=== PATIENT | female | born 1930 | race Caucasian/White ===

== ENCOUNTER 2018-12-02 16:10 | Observation (INO) | payer MEDICARE, OTHER ==
--- NOTE | 2018-12-02 16:22 | EDM.PDOC ---
ED HPI GENERAL MEDICAL PROBLEM - General Chief Complaint: Head Injury Stated Complaint: PT FELL AND HIT HEAD Time Seen by Provider: 12/02/18 16:13 Source of Information: Reports: Patient History Limitations: Reports: No Limitations - History of Present Illness INITIAL COMMENTS - FREE TEXT/NARRATIVE: HISTORY AND PHYSICAL: History of present illness: Patient is an 88-year-old female presents to the ED today with concern of head injury that occurred prior to arrival to the ED. Patient states she was leaving her daughter's house and walking home and has a bad left knee chronically. Patient states she went to go step off a curb and her "knee gave out" which is not unusual for her according to patient. Patient states she fell back and hit the top of her head. Patient states she did not lose consciousness and remembers the whole event. Patient states other than the top of her head hurting where she hit, she has no other symptoms or concerns. Patient states she does take a baby aspirin daily. Patient states she is up-to-date on her tetanus vaccine. Patient denies fever, chills, chest pain, shortness of breath, or cough. Denies headache, neck stiff ness, change in vision, syncope, or near syncope. Denies nausea, vomiting, abdominal pain, diarrhea, constipation, or dysuria. Has not noted any blood in urine or stool. Patient has been eating and drinking appropriately. Review of systems: As per history of present illness and below otherwise all systems reviewed and negative. Past medical history: As per history of present illness and as reviewed below otherwise noncontributory. Surgical history: As per history of present illness and as reviewed below otherwise noncontributory. Social history: See social history for further information Family history: As per history of present illness and as reviewed below otherwise noncontributory. Physical exam: General: Patient is alert, oriented, and in no acute distress. Patient lay ing comfortably on exam table. HEENT: Atraumatic, normocephalic, pupils equal and reactive bilaterally, negative for conjunctival pallor or scleral icterus, mucous membranes moist, TMs normal bilaterally, throat clear, neck supple, nontender, trachea midline. No drooling or trismus noted. No meningeal signs. No hot potato voice noted. There is a 2 cm subcutaneous laceration on the posterior scalp that does have a moderate amount of bleeding. Lungs: Clear to auscultation, breath sounds equal bilaterally, chest nontender. Heart: S1S2, regular rate and rhythm without overt murmur Abdomen: Soft, nondistended, nontender. Negative for masses or hepatosplenomegaly. Negative for costovertebral tenderness. Pelvis: Stable nontender. Genitourinary: Deferred. Rectal: Deferred. Skin: Intact, warm, dry. No lesions or rashes noted. Extremities: Atraumatic, negative for cords or calf pain. Neurovascular unremarkable. Neuro: Awake, alert, oriented. Cranial nerves II through XII unremarkable. Cerebellum unremarkable. Motor and sensory unremarkable throughout. Exam nonfocal. Notes: Trauma alert was called upon arrival to the ED. Dr. Perez directly involved in patient care. Dr. Wu, general surgery consulted on patient and will admit to observation. Voices understanding and is agreeable to plan of care. Denies any further questions or concerns at this time. Diagnostics: Head CT, cervical spine CT, chest x-ray, pelvic x-ray, CBC, CMP, UA, EKG, troponin Therapeutics: Sutures Impression: Scalp laceration with hematoma Head injury Fall Plan: 1. Admit to observation to Dr. Wu Definitive disposition and diagnosis as appropriate pending reevaluation and review of above. - Related Data Allergies Allergy/AdvReac Type Severity Reaction Status Date / Time No Known Allergies Allergy Verified 12/02/18 17:01 Home Meds: Home Meds Aspirin [[place] Aspirin EC] 81 mg PO DAILY 09/10/15 [History] Hydrochlorothiazide 12.5 mg PO DAILY 09/10/15 [History] Levothyroxine Sodium [Synthroid] 75 mcg PO DAILY 09/10/15 [History] Rosuvastatin Calcium 5 mg PO DAILY 09/10/15 [History] Sotalol HCl [Betapace] 160 mg PO BID 09/10/15 [History] Past Medical History Other HEENT History: wears glasses, has top partial Cardiovascular History: Reports: Arrhythmia, High Cholesterol, Hypertension Other Cardiovascular History: hx arrhythmia yrs ago, states went to [place] and they put the paddles on her and got it back in rhythm Respiratory History: Reports: None Gastrointestinal History: Reports: Bowel 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: Musculoskeletal History: Reports: Osteoarthritis, Osteoporosis Neurological History: Reports: None Psychiatric History: Reports: None Endocrine/Metabolic History: Reports: Hypothyroidism Hematologic History: Reports: Blood Transfusion(s) Other Hematologic History: blood transfusion for post bleed Immunologic History: Reports: None Oncologic (Cancer) History: Reports: Basal Cell Carcinoma Other Dermatologic History: actinic keratoses to nose - Past Surgical History Female Surgical History: Reports: Breast Biopsy, Tubal Ligation ED ROS GENERAL - Review of Systems Review Of Systems: ROS reveals no pertinent complaints other than HPI. ED EXAM, HEAD INJURY - Physical Exam Exam: See Below (See dictation) ED LACERATION/WOUND & KYLEE PROC - Laceration/Wound Repair Posterior Head Lac/wound length in cm: 2 Appearance: Subcutaneous, Linear Distal NVT: Neuro & Vascular Intact, No Tendon Injury Skin Prep: Chlorhexidine (Hibiciens) Saline irrigation (cc's): 50 Exploration/Debridement/Repair: Wound Explored, Explored to Base, No Foreign Material Found Closed with: Sutures Suture Size: 4-0 # of Sutures: 2 Suture Type: Other (ethalon) Drain Placement: No Sterile Dressing Applied: Nurse Tetanus Status Addressed: Yes (up to date) Complications: No Course - Vital Signs Last Recorded V/S: Last Vital Signs Temp 97.2 F 12/02/18 16:55 Pulse 71 12/02/18 16:55 Resp 14 12/02/18 16:55 BP 150/74 H 12/02/18 16:55 Pulse Ox 96 12/02/18 16:55 - Orders/Labs/Meds Orders: Active Orders 24 hr Category Date Time Status Admission Status [Patient Status] [ADT] Stat ADT 12/02/18 18:33 Active EKG Documentation Completion [RC] STAT Care 12/02/18 16:22 Active UA RFX NATE AND CULT IF INDIC [URIN] Stat Lab 12/02/18 19:28 Received Labs: Laboratory Tests 12/02/18 12/02/18 12/02/18 Range/Units 17:42 17:42 17:42 WBC 11.01 H (4.0-11.0) K/uL RBC 4.29 L (4.30-5.90) M/uL Hgb 13.1 (12.0-16.0) g/dL Hct 39.8 (36.0-46.0) % MCV 92.8 (80.0-98.0) fL MCH 30.5 (27.0-32.0) pg MCHC 32.9 (31.0-37.0) g/dL RDW Std Deviation 46.3 (28.0-62.0) fl RDW Coeff of Subha 14 (11.0-15.0) % Plt Count 262 (150-400) K/uL MPV 8.80 (7.40-12.00) fL Neut % (Auto) 78.5 (48.0-80.0) % Lymph % (Auto) 13.1 L (16.0-40.0) % [place] % (Auto) 7.1 (0.0-15.0) % Eos % (Auto) 1.2 (0.0-7.0) % Baso % (Auto) 0.1 (0.0-1.5) % Neut # (Auto) 8.7 H (1.4-5.7) K/uL Lymph # (Auto) 1.4 (0.6-2.4) K/uL [place] # (Auto) 0.8 (0.0-0.8) K/uL Eos # (Auto) 0.1 (0.0-0.7) K/uL Baso # (Auto) 0.0 (0.0-0.1) K/uL Nucleated RBC % 0.0 /100WBC Nucleated RBCs # 0 K/uL INR 1.03 Sodium 138 (136-145) mmol/L Potassium 3.6 (3.5-5.1) mmol/L Chloride 101 (98-107) mmol/L Carbon Dioxide 24.8 (21.0-32.0) mmol/L BUN 12 (7.0-18.0) mg/dL Creatinine 0.8 (0.6-1.0) mg/dL Est Cr Clr Drug Dosing 49.98 mL/min Estimated GFR (MDRD) > 60.0 ml/min Glucose 113 H (74-106) mg/dL Calcium 8.8 (8.5-10.1) mg/dL Total Bilirubin 0.7 (0.2-1.0) mg/dL AST 21 (15-37) IU/L ALT 16 (14-63) IU/L Alkaline Phosphatase 51 (46-116) U/L Troponin I < 0.050 (0.000-0.056) ng/mL Total Protein 7.0 (6.4-8.2) g/dL Albumin 3.7 (3.4-5.0) g/dL Globulin 3.3 (2.6-4.0) g/dL Albumin/Globulin Ratio 1.1 (0.9-1.6) Departure - Departure Time of Disposition: 18:40 Disposition: Refer to Observation Clinical Impression: Head injury Qualifiers: Encounter type: initial encounter Qualified Code(s): S09.90XA - Unspecified injury of head, initial encounter Scalp laceration Qualifiers: Encounter type: initial encounter Qualified Code(s): S01.01XA - Laceration without foreign body of scalp, initial encounter Scalp hematoma Qualifiers: Encounter type: initial encounter Qualified Code(s): S00.03XA - Contusion of scalp, initial encounter Fall Qualifiers: Encounter type: initial encounter Qualified Code(s): W19.XXXA - Unspecified fall, initial encounter - Discharge Information - My Orders Last 24 Hours: My Active Orders 12/02/18 16:22 EKG Documentation Completion [RC] STAT 12/02/18 18:33 Admission Status [Patient Status] [ADT] Stat 12/02/18 19:28 UA RFX NATE AND CULT IF INDIC [URIN] Stat - Assessment/Plan Last 24 Hours: My Active Orders 12/02/18 16:22 EKG Documentation Completion [RC] STAT 12/02/18 18:33 Admission Status [Patient Status] [ADT] Stat 12/02/18 19:28 UA RFX NATE AND CULT IF INDIC [URIN] Stat
--- NOTE | 2018-12-02 17:12 | CT ---
INDICATION: Fall TECHNIQUE: CT cervical spine without contrast. COMPARISON: None FINDINGS: Vertebral alignment: Alignment is normal. Vertebrae: There are no acute fractures. Mild biconcave endplate compression deformities T3 vertebral body most likely chronic. Discs and facet joints: Disc spaces and facets are within normal limits. Extraspinal findings: Prevertebral soft tissues, visualized airway, and visualized lungs are unremarkable. IMPRESSION: No evidence of acute cervical spine trauma. Mild biconcave T3 compression deformity most likely chronic. Dictated by Karthik Smith MD @ 12/02/2018 5:11:00 PM Please note that all CT scans at this facility use dose modulation, iterative reconstruction, and/or weight-based dosing when appropriate to reduce radiation dose to as low as reasonably achievable. Dictated by: Karthik Smith MD @ 12/02/2018 17:11:05 (Electronically Signed)
--- NOTE | 2018-12-02 17:19 | CT ---
INDICATION: Fall on blood thinners TECHNIQUE: CT head without contrast. COMPARISON: None FINDINGS: CSF spaces: Within normal limits for age. Brain parenchyma: The jimenez-white differentiation is normal. No sign of mass, hemorrhage, or midline shift. Periventricular white matter changes consistent with chronic microvascular disease. Mild diffuse volume loss. Skull base and calvarium: The visualized paranasal sinuses and mastoid air cells demonstrate no acute or significant findings. The visualized orbits are grossly unremarkable. No skull fractures. Large parietal occipital scalp hematoma. IMPRESSION: Large parieto-occipital scalp hematoma with no associated fractures or evidence of acute intracranial trauma. Dictated by Karthik Smith MD @ 12/02/2018 5:16:59 PM Please note that all CT scans at this facility use dose modulation, iterative reconstruction, and/or weight-based dosing when appropriate to reduce radiation dose to as low as reasonably achievable. Dictated by: Karthik Smith MD @ 12/02/2018 17:17:19 (Electronically Signed)
--- NOTE | 2018-12-02 17:32 | CR ---
INDICATION: Pt fell today, chest pain. TECHNIQUE: Chest 1 view. 12/02/18 FINDINGS: Cardiovascular and mediastinum: Heart size and vasculature are normal in caliber and appearance. Mediastinum is within normal limits. Lungs and pleural space: Lungs are clear. No sign of infiltrate or mass. No sign of pleural effusion. No pneumothorax. Bones and soft tissues: No significant findings. IMPRESSION: Unremarkable chest. Dictated by: Karthik Smith MD @ 12/02/2018 17:31:45 (Electronically Signed)
--- NOTE | 2018-12-02 17:34 | CR ---
INDICATION: Fall, pelvic pain TECHNIQUE: AP pelvis one view COMPARISON: None FINDINGS: Bones: Alignment is normal. No fractures or bone lesions. Joint spaces: Unremarkable. Soft tissues: Unremarkable. IMPRESSION: No evidence of acute trauma. Dictated by Karthik Smith MD @ 12/02/2018 5:33:50 PM Dictated by: Karthik Smith MD @ 12/02/2018 17:33:57 (Electronically Signed)
[2018-12-02 18:15] LABS: BLOOD UREA NITROGEN,BUN 12 mg/dL (7.0-18.0); CARBON DIOXIDE,CO2 24.8 mmol/L (21.0-32.0); CHLORIDE,CL 101 mmol/L (98-107); GLUCOSE RANDOM 113 mg/dL (74-106); POTASSIUM,K 3.6 mmol/L (3.5-5.1); SODIUM,NA 138 mmol/L (136-145)
--- NOTE | 2018-12-02 19:34 | PCM.HP.2 ---
H&P History of Present Illness - General Date of Service: 12/02/18 Admit Problem/Dx: Admission Diagnosis/Problem Admission Diagnosis/Problem Head injury without fracture of skull, fall at home. Source of Information: Patient History Limitations: Reports: No Limitations - History of Present Illness Initial Comments - Free Text/Narative: Patient is an 88-year-old female who fell at home in her garage. She was attempting to go up the stairs into her house and she states her knee gave out. She fell backwards striking her head on the concrete. She denies any loss of consciousness and is able to recount all of the recent events. She states her daughter did bring her to the hospital and she did not require ambulance transfer. This was called as a trauma alert secondary to her age. She did suffer a laceration to the back of her scalp that didn't require suturing by Dr. Perez. She is going to be admitted to observation status. Telemetry monitoring will be used. Onset of Symptoms: Reports: Today Location: Reports: Head Quality: Reports: Ache Severity: Mild Improves with: Reports: Rest Worsens with: Reports: None Context: Reports: Trauma. Denies: Sick Contact, Activity/Exercise, Lifting, Exertion, Rest Associated Symptoms: Denies: Confusion, Chest Pain, Headaches, Loss of Appetite , Malaise, Nausea/Vomiting, Seizure, Shortness of Breath, Syncope, Weakness - Related Data Allergies/Adverse Reactions: Allergies Allergy/AdvReac Type Severity Reaction Status Date / Time No Known Allergies Allergy Verified 12/02/18 17:01 Home Medications: Home Meds Aspirin [[place] Aspirin EC] 81 mg PO DAILY 09/10/15 [History] Hydrochlorothiazide 12.5 mg PO DAILY 09/10/15 [History] Levothyroxine Sodium [Synthroid] 75 mcg PO DAILY 09/10/15 [History] Rosuvastatin Calcium 5 mg PO DAILY 09/10/15 [History] Sotalol HCl [Betapace] 160 mg PO BID 09/10/15 [History] Past Medical History Other HEENT History: wears glasses, has top partial Cardiovascular History: Reports: Arrhythmia, High Cholesterol, Hypertension Other Cardiovascular History: hx arrhythmia yrs ago, states went to [place] and they put the paddles on her and got it back in rhythm Respiratory History: Reports: None 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: Musculoskeletal History: Reports: Osteoarthritis, Osteoporosis Neurological History: Reports: None Psychiatric History: Reports: None Endocrine/Metabolic History: Reports: Hypothyroidism Hematologic History: Reports: Blood Transfusion(s) Other Hematologic History: blood transfusion for post bleed Immunologic History: Reports: None Oncologic (Cancer) History: Reports: Basal Cell Carcinoma Other Dermatologic History: actinic keratoses to nose - Infectious Disease History Infectious Disease History: Reports: Chicken Pox, Measles, Rheumatic Fever - Past Surgical History Female Surgical History: Reports: Breast Biopsy, Tubal Ligation Social & Family History - Family History Family Medical History: Noncontributory - Tobacco Use Smoking Status *Q: Never Smoker - Caffeine Use Caffeine Use: Reports: None - Recreational Drug Use Recreational Drug Use: No H&P Review of Systems - Review of Systems: Review Of Systems: See Below General: Denies: Fever, Chills, Malaise, Weakness HEENT: Reports: No Symptoms Pulmonary: Denies: Shortness of Breath, Wheezing Cardiovascular: Reports: Edema. Denies: Chest Pain, Palpitations, Dyspnea on Exertion, Orthopnea, PND, Syncope Gastrointestinal: Reports: Flatus. Denies: Abdominal Pain, Anorexia, Black Stool, Bloody Stool, Decreased Appetite, Distension, Hematemesis, Hematochezia, Melena, Nausea, Vomiting Genitourinary: Denies: Dysuria, Frequency, Burning, Pain, Urgency Musculoskeletal: Denies: Neck Pain, Shoulder Pain, Arm Pain, Back Pain Skin: Denies: Cyanosis, Jaundice, Mottled, Pallor Psychiatric: Denies: Confusion, Depression, Mood Lability, Anxiety, Agitation Neurological: Denies: Confusion, Dizziness, Headache, Numbness Hematologic/Lymphatic: Reports: No Symptoms Immunologic: Reports: No Symptoms Exam - Exam Exam: See Below - Vital Signs Vital Signs: Last Vital Signs Temp 97.2 F 12/02/18 16:55 Pulse 71 12/02/18 16:55 Resp 14 12/02/18 16:55 BP 150/74 H 12/02/18 16:55 Pulse Ox 96 12/02/18 16:55 Weight: 168 lb - Exam Quality Assessment: Supplemental Oxygen. No: Central Line/PICC, Urinary Catheter, DVT Prophylaxis, Skin Breakdown, Restraints General: Alert, Oriented, Cooperative HEENT: Conjunctiva Clear, EACs Clear, Nares Patent, Pupils Equal, Pupils Reactive, PERRLA. No: Scleral Icterus Neck: Supple, Trachea Midline, +2 Carotid Pulse wo Bruit, Full Range of Motion Lungs: Clear to Auscultation, Normal Respiratory Effort. No: Crackles, Rales, Rhonchi, Rub, Wheezing Cardiovascular: Regular Rate, Regular Rhythm. No: Irregular Rhythm, Bradycardia , Tachycardia, Systolic Murmur GI/Abdominal Exam: Normal Bowel Sounds, Soft, Non-Tender, No Distention, No Mass. No: Guarding, Rigid, Rebound (Female) Exam: Deferred Rectal (Female) Exam: Deferred Back Exam: Normal Inspection, Full Range of Motion Extremities: Normal Inspection, Normal Range of Motion, Non-Tender, Pedal Edema (2-3 mm). No: Guille's Sign, Leg Pain Peripheral Pulses: 4+: Posterior Tibial (L), Posterior Tibial (R), Dorsalis Pedis (L), Dorsalis Pedis (R) Skin: Warm, Dry, Intact - Patient Data Lab Results Last 24 hrs: Laboratory Results - last 24 hr 12/02/18 12/02/18 12/02/18 Range/Units 17:42 17:42 17:42 WBC 11.01 H (4.0-11.0) K/uL RBC 4.29 L (4.30-5.90) M/uL Hgb 13.1 (12.0-16.0) g/dL Hct 39.8 (36.0-46.0) % MCV 92.8 (80.0-98.0) fL MCH 30.5 (27.0-32.0) pg MCHC 32.9 (31.0-37.0) g/dL RDW Std Deviation 46.3 (28.0-62.0) fl RDW Coeff of Subha 14 (11.0-15.0) % Plt Count 262 (150-400) K/uL MPV 8.80 (7.40-12.00) fL Neut % (Auto) 78.5 (48.0-80.0) % Lymph % (Auto) 13.1 L (16.0-40.0) % [place] % (Auto) 7.1 (0.0-15.0) % Eos % (Auto) 1.2 (0.0-7.0) % Baso % (Auto) 0.1 (0.0-1.5) % Neut # (Auto) 8.7 H (1.4-5.7) K/uL Lymph # (Auto) 1.4 (0.6-2.4) K/uL [place] # (Auto) 0.8 (0.0-0.8) K/uL Eos # (Auto) 0.1 (0.0-0.7) K/uL Baso # (Auto) 0.0 (0.0-0.1) K/uL Nucleated RBC % 0.0 /100WBC Nucleated RBCs # 0 K/uL INR 1.03 Sodium 138 (136-145) mmol/L Potassium 3.6 (3.5-5.1) mmol/L Chloride 101 (98-107) mmol/L Carbon Dioxide 24.8 (21.0-32.0) mmol/L BUN 12 (7.0-18.0) mg/dL Creatinine 0.8 (0.6-1.0) mg/dL Est Cr Clr Drug Dosing 49.98 mL/min Estimated GFR (MDRD) > 60.0 ml/min Glucose 113 H (74-106) mg/dL Calcium 8.8 (8.5-10.1) mg/dL Total Bilirubin 0.7 (0.2-1.0) mg/dL AST 21 (15-37) IU/L ALT 16 (14-63) IU/L Alkaline Phosphatase 51 (46-116) U/L Troponin I < 0.050 (0.000-0.056) ng/mL Total Protein 7.0 (6.4-8.2) g/dL Albumin 3.7 (3.4-5.0) g/dL Globulin 3.3 (2.6-4.0) g/dL Albumin/Globulin Ratio 1.1 (0.9-1.6) Result Diagrams: 12/02/18 17:42 12/02/18 17:42 - Problem List (1) Fall SNOMED Code(s): 4781712, 764916034 ICD Code: W19.XXXA - UNSPECIFIED FALL, INITIAL ENCOUNTER Status: Acute Priority: Medium Current Visit: Yes Qualifiers: Encounter type: initial encounter Qualified Code(s): W19.XXXA - Unspecified fall, initial encounter (2) Head injury SNOMED Code(s): 53880800 ICD Code: S09.90XA - UNSPECIFIED INJURY OF HEAD, INITIAL ENCOUNTER Status: Acute Priority: Medium Current Visit: Yes Qualifiers: Encounter type: initial encounter Qualified Code(s): S09.90XA - Unspecified injury of head, initial encounter (3) Scalp hematoma SNOMED Code(s): 688551589 ICD Code: S00.03XA - CONTUSION OF SCALP, INITIAL ENCOUNTER Status: Acute Priority: Medium Current Visit: Yes Qualifiers: Encounter type: initial encounter Qualified Code(s): S00.03XA - Contusion of scalp, initial encounter (4) Scalp laceration SNOMED Code(s): 420428994 ICD Code: S01.01XA - LACERATION WITHOUT FOREIGN BODY OF SCALP, INITIAL ENCOUNTER Status: Acute Priority: Medium Current Visit: Yes Qualifiers: Encounter type: initial encounter Qualified Code(s): S01.01XA - Laceration without foreign body of scalp, initial encounter Problem List Initiated/Reviewed/Updated: Yes Orders Last 24hrs: Active Orders 24 hr Category Date Time Status Admission Status [Patient Status] [ADT] Stat ADT 12/02/18 18:33 Active Communication Order [RC] ROUTINE Care 12/02/18 19:25 Ordered EKG Documentation Completion [RC] STAT Care 12/02/18 16:22 Active Pulse Oximetry [RC] INTERMITTENT Care 12/02/18 19:24 Ordered Telemetry Monitoring [Cardiac Monitoring] [RC] . Care 12/02/18 19:28 Ordered DIRECTED Up ad Inocencia [RC] ASDIRECTED Care 12/02/18 19:24 Ordered Vital Signs [RC] PER UNIT ROUTINE Care 12/02/18 19:24 Ordered Regular Diet [DIET] Diet 12/02/18 Dinner Ordered UA RFX NATE AND CULT IF INDIC [URIN] Stat Lab 12/02/18 16:18 Ordered Precautions Risk BH [BH] Routine Oth 12/02/18 19:25 Ordered Resuscitation Status Routine Resus Stat 12/02/18 19:24 Ordered Assessment/Plan Comment:: 88-year-old female who sustained an unwitnessed fall at home. No documented loss of consciousness. Patient is able to recount all of the events. She is going to be admitted to observation status secondary to the fall and scalp laceration. Telemetry monitoring. Anticipate discharge in the morning. - Mortality Measure Prognosis:: Good
[2018-12-03 08:10] VITALS: PULSE 67
[2018-12-03] MEDS ORDERED: Acetaminophen 325 MG Tab ONE (09:52)
[2018-12-03 11:01] VITALS: BP 146/74
[2018-12-04] MEDS ORDERED: Acetaminophen 325 MG Tab PO ONE (09:04)
== END 2018-12-03 10:35 | disposition home or self-care (01) ==
LOC: MW.ED 16:10 → MW.MS 19:12
PROVIDERS: ADMIT Surgery; ATTEND Surgery
DX: S00.03XA Contusion of scalp, initial encounter (principal); E78.00 Pure hypercholesterolemia, unspecified; E03.9 Hypothyroidism, unspecified; I10 Essential (primary) hypertension; M19.90 Unspecified osteoarthritis, unspecified site; M81.0 Age-related osteoporosis without current pathological fracture; W10.9XXA Fall (on) (from) unspecified stairs and steps, initial encounter; Y92.015 Private garage of single-family (private) house as the place of occurrence of the external cause; Z79.82 Long term (current) use of aspirin; Z79.899 Other long term (current) drug therapy
CPT/HCPCS: 36415; 70450; 71045; 72125; 72170; 80053; 81001; 84484; 85025; 85610; 87086; 93005; 99285; A9270; G0378

== ENCOUNTER 2019-05-01 07:53 | Emergency (ER) | payer MEDICARE, OTHER ==
--- NOTE | 2019-05-01 08:46 | EDM.PDOC ---
ED HPI GENERAL MEDICAL PROBLEM - General Chief Complaint: Cardiovascular Problem Stated Complaint: CHANGED MEDICATIONS, HIGH BLOOD PRESSUE Time Seen by Provider: 05/01/19 07:54 Source of Information: Reports: Patient, Family History Limitations: Reports: No Limitations - History of Present Illness INITIAL COMMENTS - FREE TEXT/NARRATIVE: HISTORY OF PRESENT ILLNESS: Patient is a 88 year old who presents to the ER for elevated blood pressure reading. Patient was previously on hydrochlorothiazide which was discontinued and patient started on losartan. Patient and family state it was started as she also has hyperlipidemia. Patient has been checking her blood pressure frequently and noticed the value was increasing. They are concerned that the losartan is causing the blood pressure to rise. They called the nurse practitioner on Thursday who suggested they increase the dose to twice daily. Patient has still only been taking it once daily as she is concerned that it is causing her hypertension. On ROS, she has very slight headache. No blurred vision. No chest pain or dyspnea. No abdominal pain. No vomiting or diarrhea. No weakness or paresthesia. No urinary complaints. REVIEW OF SYSTEMS: Other than the symptoms associated with the present events, the following is reported with regard to recent health: General: (-) fever. HENT: (-) congestion. Respiratory: (-) cough. Cardiovascular: (-) chest pain. GI: (-) abdominal pain. : (-) urinary complaints. Musculoskeletal: (-) other aches or pains. Endocrine: (-) generalized weakness. Neurological: (-) localized weakness. Skin: (-) rash PAST MEDICAL HISTORY: reviewed as per nursing notes SOCIAL HISTORY: reviewed as per nursing notes, MEDICATIONS: Per nurse's note ALLERGIES: Per nurse's note, reviewed by me PHYSICAL EXAMINATION: GENERALIZED APPEARANCE: well developed, well nourished in no distress VITAL SIGNS: Per nurse's note, reviewed by me SKIN: Warm, dry; (-) cyanosis; (-) rash. HEAD: (-) scalp swelling, (-) tenderness. EYES: (-) conjunctival pallor, (-) scleral icterus. ENMT: (-) stridor; mucous membranes moist. NECK: (-) tenderness, (-) stiffness, CHEST AND RESPIRATORY: (-) rales, (-) rhonchi, (-) wheezes; breath sounds equal bilaterally. HEART AND CARDIOVASCULAR: (-) irregularity; (-) murmur, (-) gallop. ABDOMEN AND GI: Soft; (-) tenderness, (-) guarding, (-) rebound, (-) palpable masses, EXTREMITIES: (-) deformity, (-) edema. NEURO AND PSYCH: Alert. Cranial nerves grossly intact; strength symmetric. gait steady. NIHSS = 0. no facial droop. nml speech. cerebellar testing wnl. 5/5 + Strength BUE BLE. sensation intact. no gaze impairment. visual devi intact. DIAGNOSTICS: EKG: sr at 67 bpm. nml axis. nml intervals. no st elevation EMERGENCY DEPARTMENT COURSE AND TREATMENT: Patient's condition remained stable during Emergency Department evaluation. Patient resents with hypertension, no neurological deficits, no cp or dyspnea, no urinary sx, without any end organ symptoms. Patient will need to see pcp tomorrow to have medications adjusted. No indication to emergently lower at this time.It was recommended that she follow pcp's instruction to increase dose bid. Return immediately with any new or worsening sx. Given discharge precautions. PLAN AND FOLLOW-UP: Patient received written and verbal instructions regarding this condition. Return to ED immediately with any new or worsening symptoms. Follow up to be arranged by patient with pcp in 1-2 days for further evaluation. Given discharge precautions. Patient and family expressed verbal understanding. headache Pain Score (Numeric/FACES): 2 - Related Data Allergies Allergy/AdvReac Type Severity Reaction Status Date / Time No Known Allergies Allergy Verified 05/01/19 08:05 Home Meds: Home Meds Aspirin [Orem Aspirin EC] 81 mg PO DAILY 09/10/15 [History] Levothyroxine Sodium [Synthroid] 75 mcg PO DAILY 09/10/15 [History] Rosuvastatin Calcium 5 mg PO DAILY 09/10/15 [History] Sotalol HCl [Betapace] 160 mg PO BID 09/10/15 [History] Losartan Potassium [Cozaar] 50 mg PO DAILY 05/01/19 [History] Past Medical History Other HEENT History: wears glasses, has top partial Cardiovascular History: Reports: Arrhythmia, High Cholesterol, Hypertension Other Cardiovascular History: hx arrhythmia yrs ago, states went to [place] and they put the paddles on her and got it back in rhythm Respiratory History: Reports: None Gastrointestinal History: Reports: Bowel Obstruction [employer]CH[employer]ICIAN History: Reports: Musculoskeletal History: Reports: Osteoarthritis, Osteoporosis Neurological History: Reports: None Psychiatric History: Reports: None Endocrine/Metabolic History: Reports: Hypothyroidism Hematologic History: Reports: Blood Transfusion(s) Other Hematologic History: blood transfusion for post bleed Immunologic History: Reports: None Oncologic (Cancer) History: Reports: Basal Cell Carcinoma Other Dermatologic History: actinic keratoses to nose - Infectious Disease History Infectious Disease History: Reports: Chicken Pox, Mumps - Past Surgical History Head Surgeries/Procedures: Reports: None HEENT Surgical History: Reports: Cataract Surgery GI Surgical History: Reports: Small Bowel Female Surgical History: Reports: Breast Biopsy, Tubal Ligation Social & Family History - Family History Family Medical History: Noncontributory - Tobacco Use Smoking Status *Q: Never Smoker - Caffeine Use Caffeine Use: Reports: Coffee - Recreational Drug Use Recreational Drug Use: No ED ROS GENERAL - Review of Systems Review Of Systems: See Below (see dictation) ED EXAM, GENERAL - Physical Exam Exam: See Below (see dictation) Course - Vital Signs Last Recorded V/S: Last Vital Signs Temp 97.6 F 05/01/19 08:02 Pulse 79 05/01/19 08:02 Resp 18 05/01/19 08:02 BP 176/71 H 05/01/19 08:02 Pulse Ox 96 05/01/19 08:02 - Orders/Labs/Meds Orders: Active Orders 24 hr Category Date Time Status EKG 12 Lead [EKG Documentation Completion] [RC] STAT Care 05/01/19 08:06 Active Departure - Departure Time of Disposition: 08:44 Disposition: Home, Self-Care 01 Condition: Good Clinical Impression: Hypertension Instructions: How to Take Your Blood Pressure, [id number], Hypertension, Easy -to-Read Referrals: Romana Garza NP [Primary Care Provider] - 1 Day Forms: ED Department Discharge Additional Instructions: The following information is given to patients seen in the emergency department who are being discharged to home. This information is to outline your options for follow-up care. We provide all patients seen in our emergency department with a follow-up referral. The need for follow-up, as well as the timing and circumstances, are variable depending upon the specifics of your emergency department visit. If you don't have a primary care physician on staff, we will provide you with a referral. We always advise you to contact your personal physician following an emergency department visit to inform them of the circumstance of the visit and for follow-up with them and/or the need for any referrals to a consulting specialist. The emergency department will also refer you to a specialist when appropriate. This referral assures that you have the opportunity for follow-up care with a specialist. All of these measure are taken in an effort to provide you with optimal care, which includes your follow-up. Under all circumstances we always encourage you to contact your private physician who remains a resource for coordinating your care. When calling for follow-up care, please make the office aware that this follow-up is from your recent emergency room visit. If for any reason you are refused follow-up, please contact the Emergency Department at and asked to speak to the emergency department charge nurse. Sepsis Event Note - Evaluation Sepsis Screening Result: No Definite Risk - Focused Exam Vital Signs: Vital Signs Temp Pulse Resp BP Pulse Ox 05/01/19 08:02 97.6 F 79 18 176/71 H 96 Date Exam was Performed: 05/01/19 Time Exam was Performed: 08:46 - My Orders Last 24 Hours: My Active Orders 05/01/19 08:06 EKG 12 Lead [EKG Documentation Completion] [RC] STAT - Assessment/Plan Last 24 Hours: My Active Orders 05/01/19 08:06 EKG 12 Lead [EKG Documentation Completion] [RC] STAT
[2019-05-01 09:06] VITALS: BP 140/62; PULSE 66
== END 2019-05-01 09:06 | disposition home or self-care (01) ==
LOC: MW.ED 07:53
DX: I10 Essential (primary) hypertension (principal); E78.00 Pure hypercholesterolemia, unspecified; M19.90 Unspecified osteoarthritis, unspecified site; E03.9 Hypothyroidism, unspecified; Z79.82 Long term (current) use of aspirin; Z79.899 Other long term (current) drug therapy
CPT/HCPCS: 93005; 99282; 99283-25